=== PATIENT | female | born 1935 | race African-American/Black ===

== ENCOUNTER → 2016-12-31 | Outpatient (CLI) | payer OTHER ==
[2014-07-18 21:27] VITALS: BP 209/123
[~2016-12-31] MED LIST: AMLO5TAB2 PO; HYDR-2869 PO
--- NOTE | 2016-12-31 16:09 | RAD ---
Chest radiograph 12/31/2016 at 1507 hours Indication: Edema Comparison: 12/17/2012, 07/08/2003 Technique: PA and lateral views of the chest are provided. Findings: Cardiomediastinal silhouette is within normal limits. Thoracic aorta appears tortuous and ectatic, stable. No pleural effusions, pulmonary vascular congestion or pneumothorax. The lungs are clear. Mild gaseous prominence of the splenic flexure. Osseous structures are normal. Impression: No acute cardiopulmonary process.
== END | disposition home or self-care (01) ==
LOC: RAD 14:44
PROVIDERS: ATTEND Internal Medicine Cardiovascular Disease
DX: R60.9 Edema, unspecified (principal)
CPT/HCPCS: 71020